=== PATIENT | male | born 1950 | race Caucasian/White ===

== ENCOUNTER 2017-03-03 14:02 | Emergency (ER) | payer BC ==
[~2017-03-03] VITALS: Ht 172.7 cm; Wt 132.0 kg
[~2017-03-03 14:02] MED LIST: ASPIR 8181 M1 PO; ASPIR-LOW81 M1 PO; CARDIZEM CD,CA180 MG PO; CARDIZEM CD,CA240 MG PO; COUMADIN1 MG PO; Cardizem CD,Cartia X PO; DILTIAZEM 24HR180 MG PO; Diovan HCT 80/12.5 PO; GLUCOPHAGE500 MG PO; LISINOPRIL10 MG PO; Lasix PO; METFORMIN HCL500 MG PO; NEXIUM20 MG PO; NEXIUM40 MG PO; PRAVASTATIN SOD20 MG PO; PRAVASTATIN SOD80 MG PO; Tylenol Regular Stre PO; WARFARIN SODIUM4 MG PO; Zocor PO
[2017-03-03 14:35] LABS: HEMATOCRIT 38.9 % (38.0-50.0); MCH 30.7 PG (29.0-34.0); MCHC 33.2 G/DL (30.0-36.0); MCV 92.6 FL (86-99); MEAN PLAT.VOLUME 9.4 uM^3 (9.0-12.4); PLATELET COUNT 238 K/uL (156-360); RBC DIS.WIDTH-CV 13.9 % (11.8-14.6); RBC DIS.WIDTH-SD 47.5 % (39-53); WHITE BLOOD COUNT 6.2 K/uL (4.1-10.2)
[2017-03-03 14:44] LABS: CHLORIDE 99 mEq/L (99-109); POTASSIUM 3.8 mEq/L (3.7-5.4); SODIUM 135 mEq/L (136-147)
[2017-03-03 14:46] LABS: GLUCOSE 93 mg/dL (70-99)
[2017-03-03 14:47] LABS: ANION GAP 10 MEQ/L (2-14)
[2017-03-03 14:50] LABS: GFR ESTIMATE (CALCULATED) > 59 mL/min/; UREA NITROGEN (BUN) 14 mg/dL (9-23)
[2017-03-03 15:36] LABS: TROP-I INTERPRETATION NEGATIVE; TROPONIN-I < 0.01 ng/mL (0.0-0.30)
[2017-03-03 18:11] VITALS: BP 131/72
== END 2017-03-03 18:12 | disposition home or self-care (01) ==
LOC: EME 14:02
PROVIDERS: Emergency Medicine
DX: R42 Dizziness and giddiness (principal); R11.0 Nausea; R51 Headache; I10 Essential (primary) hypertension; E11.9 Type 2 diabetes mellitus without complications; Z79.84 Long term (current) use of oral hypoglycemic drugs; I48.91 Unspecified atrial fibrillation; Z79.01 Long term (current) use of anticoagulants; Z86.73 Personal history of transient ischemic attack (TIA), and cerebral infarction without residual deficits; Z95.1 Presence of aortocoronary bypass graft; Z87.891 Personal history of nicotine dependence
CPT/HCPCS: 70450; 70551; 71020; 80048; 84484; 85027; 93005; 99281; 99284; J7030